=== PATIENT | male | born 1965 | race African-American/Black ===

== ENCOUNTER 2022-01-09 19:40 | Inpatient (IN) | payer OTHER ==
[2022-01-09] MEDS ORDERED: guaiFENesin 200 MG/10 ML 10 ML UNIT-DOSE CUPS PO PRN (20:57)
[2022-01-09] MEDS ORDERED: MAGNESIUM CITRATE 300 ML BOTTLE PO PRN (20:57)
[2022-01-09] MEDS ORDERED: P-EPHED 60MG/TRIPROLIDI 2.5MG TABLET PO PRN (20:57)
[2022-01-09] MEDS ORDERED: MAG HYDROX/AL HYDROX/SIMETH 30 ML UNIT-DOSE CUP PO PRN (20:57)
[2022-01-09] MEDS ORDERED: IBUPROFEN 400 MG TABLET (FP) PO PRN (20:57)
[2022-01-09] MEDS ORDERED: BENZOCAINE/MENTHOL (CHLORASEPTIC ) LOZENGE MM PRN (20:57)
[2022-01-09] MEDS ORDERED: ACETAMINOPHEN 325 MG TABLET (FP) PO PRN ×2 (20:57)
[2022-01-09] MEDS ORDERED: ONDANSETRON *ODT* 4 MG TABLET SL PRN (20:57)
[2022-01-09] MEDS ORDERED: DICYCLOMINE HCL 10 MG CAPSULE PO PRN (20:57)
[2022-01-09] MEDS ORDERED: MAGNESIUM HYDROX 2400MG/30ML ORAL SUSPENSION 30 ML CUP PO PRN (20:57)
[2022-01-09] MEDS ORDERED: hydrOXYzine PAMOATE 25 MG CAPSULE (FP) PO PRN (20:57)
[2022-01-09] MEDS ORDERED: LOPERAMIDE HCL 2 MG CAPSULE PO PRN (20:57)
[2022-01-09] MEDS ORDERED: BISMUTH SUBSALICYLATE 524 MG/30 ML PO PRN (20:57)
[2022-01-09] MEDS ORDERED: METHOCARBAMOL 500 MG TABLET PO PRN (20:57)
[2022-01-09] MEDS ORDERED: NICOTINE POLACRILEX 2 MG GUM BUC PRN (20:57)
[2022-01-10] MEDS ORDERED: ACETAMINOPHEN 325 MG TABLET (FP) ONE (02:28)
[2022-01-10] MEDS: THIAMINE HCL 100 MG TABLET (FP) PO SCH ×2 (02:30→22:38)
[2022-01-10] MEDS: MELATONIN 5 MG TABLETS PO SCH ×2 (02:30→22:37)
[2022-01-10 03:28] VITALS: BMI 15.0
[2022-01-10] MEDS ORDERED: LOPERAMIDE HCL 2 MG CAPSULE PO PRN (03:48)
[2022-01-10] MEDS ORDERED: ALBUTEROL SO4 HFA INHALER IH PRN (03:48)
[2022-01-10] MEDS ORDERED: PRENATAL VITAMINS W/ FOLIC ACID TABLET (FP) PO SCH (10:00)
[2022-01-10] MEDS ORDERED: BICTEGRAV/EMTRICIT/TENOFOV (BIKTARVY) 50-200-25 MG TABLET PO SCH (10:00)
[2022-01-10] MEDS ORDERED: FLUCONAZOLE 100 MG TABLET (UD) PO SCH (10:00)
[2022-01-10] MEDS ORDERED: PANTOPRAZOLE 40 MG TABLET PO SCH (10:00)
[2022-01-10] MEDS ORDERED: NICOTINE 21 MG/24 HOURS TOPICAL PATCH TD SCH (10:00)
[2022-01-10 12:17] LABS: CHLORIDE 107 mmol/L (98-107); SODIUM 141 mmol/L (136-145)
[2022-01-10 12:20] LABS: HEMATOCRIT 23.3 % (35.4-49); HEMOGLOBIN 7.8 GM/dL (11.7-16.9); MCH 29.6 pg (25.7-33.7); MCHC 33.4 g/dl (32.0-35.9); MEAN CELL VOLUME 88.6 fl (80-96); MEAN PLT VOLUME 7.1 fl (7.5-11.1); PLATELET COUNT 225 10^3/uL (134-434); RBC 2.63 M/mm3 (4.00-5.60); RDW 15.9 % (11.9-15.9)
[2022-01-10 12:22] LABS: CALCIUM 7.4 mg/dL (8.5-10.1)
[2022-01-10 12:24] LABS: ALBUMIN 1.8 g/dl (3.4-5.0); BLOOD UREA NITROGEN 16.4 mg/dL (7-18); CO2 28 mmol/L (21-32); GLUCOSE,RANDOM 123 mg/dL (74-106)
[2022-01-10 12:27] LABS: CREATININE 0.7 mg/dL (0.55-1.3); SGOT/AST 117 U/L (15-37); SGPT/ALT 98 U/L (13-61)
[2022-01-10 12:28] LABS: TOT PROT 5.8 g/dl (6.4-8.2)
[2022-01-10 12:29] LABS: ALK PHOS 171 U/L (45-117); BILIRUBIN,TOTAL 0.2 mg/dL (0.2-1)
[2022-01-10 12:30] LABS: ANION GAP 6 MMOL/L (8-16)
[2022-01-10] MEDS ORDERED: FLUTICASONE PROP 0.05% 16 GM NASAL SPRAY NS PRN (12:35)
[2022-01-10] MEDS ORDERED: POTASSIUM CHLORIDE TABS 20 MEQ TABLET.ER (FP) PO ONE (12:36)
[2022-01-10] MEDS ORDERED: POTASSIUM CHLORIDE ORAL LIQUID 20 MEQ/15 ML PO ONE (12:44)
[2022-01-10] MEDS: ACYCLOVIR 400 MG TABLET PO SCH ×3 (13:07→22:38)
[2022-01-10 13:23] VITALS: BP 116/78; PULSE 96; TEMP 98
[2022-01-11 14:12] LABS: SARS-CoV-2 NAA Detected (Not Detected)
[2022-01-16] MEDS ORDERED: AZITHROMYCIN 600 MG TABLET PO SCH (10:00)
== END 2022-01-10 23:41 | disposition short-term general hospital (02) | DRG 775 ==
LOC: YASAS 19:40 → Y3N 01-10 12:00
PROVIDERS: ADMIT Allergy & Immunology; ATTEND Allergy & Immunology
PROC: HZ2ZZZZ Detoxification Services for Substance Abuse Treatment (ICD-10-PCS; principal; 2022-01-10)
DX: F10.20 Alcohol dependence, uncomplicated (principal); F12.20 Cannabis dependence, uncomplicated; F17.210 Nicotine dependence, cigarettes, uncomplicated; F32.A Depression, unspecified; J18.9 Pneumonia, unspecified organism; E87.6 Hypokalemia; D72.819 Decreased white blood cell count, unspecified; E86.0 Dehydration; B20 Human immunodeficiency virus [HIV] disease; K21.9 Gastro-esophageal reflux disease without esophagitis; J44.9 Chronic obstructive pulmonary disease, unspecified; K20.90 Esophagitis, unspecified without bleeding; L30.9 Dermatitis, unspecified; R26.2 Difficulty in walking, not elsewhere classified; Z99.89 Dependence on other enabling machines and devices; Z88.2 Allergy status to sulfonamides; Z91.19 Patient's noncompliance with other medical treatment and regimen
CPT/HCPCS: 36415; 80053; 85027; 86780; 93005; 93010; C9803-CS; U0003; U0005

== ENCOUNTER 2022-01-10 13:48 | Emergency (ER) | payer OTHER ==
[2022-01-10 14:15] VITALS: TEMP 97.8; BMI 15.5
[2022-01-10] MEDS ORDERED: SODIUM CHLORIDE 0.9% 500 ML INFUS.BAG IV ONE (14:26)
[2022-01-10] MEDS ORDERED: ACETAMINOPHEN 1000 MG/100 ML BAG IVPB ONE (14:29)
[2022-01-10 15:15] LABS: HEMATOCRIT 25.8 % (35.4-49); HEMOGLOBIN 8.6 GM/dL (11.7-16.9); MCHC 33.3 g/dl (32.0-35.9); MEAN CELL VOLUME 90.2 fl (80-96); MEAN PLT VOLUME 7.4 fl (7.5-11.1); PLATELET COUNT 251 10^3/uL (134-434); RBC 2.86 M/mm3 (4.00-5.60); RDW 15.9 % (11.9-15.9)
[2022-01-10] MEDS ORDERED: ACETAMINOPHEN INJECTION 100 ML IVPB ONE (15:33)
[2022-01-10 15:44] LABS: CALCIUM 7.7 mg/dL (8.5-10.1)
[2022-01-10 15:45] LABS: BLOOD UREA NITROGEN 14.1 mg/dL (7-18); MAGNESIUM 2.1 mg/dL (1.8-2.4)
[2022-01-10 15:48] LABS: CREATININE 0.7 mg/dL (0.55-1.3)
[2022-01-10 15:50] LABS: TOT PROT 6.7 g/dl (6.4-8.2)
[2022-01-10 15:51] LABS: BILIRUBIN,TOTAL 0.3 mg/dL (0.2-1)
[2022-01-10 15:55] LABS: ANISOCYTOSIS 1+; MACROCYTOSIS 1+
[2022-01-10] MEDS ORDERED: CLINDAMYCIN 600MG PREMIX IVPB 600 MG/50 ML BAG IVPB ONE ×2 (16:32→17:04)
[2022-01-10] MEDS ORDERED: VANCOMYCIN 1 GM in D5W (PRE-DOCKED) 1,000 MG/250 ML IVPB ONE (16:32)
[2022-01-10] MEDS ORDERED: morphine CARPU-JECT 4 MG/1 ML DISP.SYRIN IVPUSH ONE (16:59)
[2022-01-10] MEDS ORDERED: VANCOMYCIN 1 GRAM (PRE-DOCKED) 1,000 MG/250 ML BAG IVPB ONE (17:03)
[2022-01-10 18:33] VITALS: BP 105/71; PULSE 70
== END 2022-01-10 18:59 | disposition short-term general hospital (02) ==
LOC: JER 13:48
PROC: 3E0333Z Introduction of Anti-inflammatory into Peripheral Vein, Percutaneous Approach (ICD-10-PCS; principal; 2022-01-10)
PROC: 3E03329 Introduction of Other Anti-infective into Peripheral Vein, Percutaneous Approach (ICD-10-PCS; 2022-01-10)
PROC: 3E033NZ Introduction of Analgesics, Hypnotics, Sedatives into Peripheral Vein, Percutaneous Approach (ICD-10-PCS; 2022-01-10)
PROC: 3E03329 Introduction of Other Anti-infective into Peripheral Vein, Percutaneous Approach (ICD-10-PCS; 2022-01-10)
DX: U07.1 COVID-19 (principal); R07.0 Pain in throat; D72.819 Decreased white blood cell count, unspecified
CPT/HCPCS: 36415; 70491-TC; 71046-TC-FY; 80053; 83735; 85025; 87040; 87804; 93005; 93010; 99285-25; C9803-CS; Q9967; U0003; U0005